=== PATIENT | female | born 1950 | race African-American/Black ===

== ENCOUNTER → 2018-06-22 | Outpatient (CLI) | payer MEDICARE ==
[~2018-06-22] MED LIST: DOXY100T2 PO; GLYB5TAB8 PO; HYDR-4173 PO; LISI20TA PO; METF-446 PO; PRAV20TA4 PO; PROM25TA7 PO; TRAM50TA4 PO; VICOT; [UNRECOGNIZED DRUG - CODE] PO
== END | disposition home or self-care (01) ==
LOC: RADMN 09:16
PROVIDERS: ATTEND Legal Medicine
DX: H05.89 Other disorders of orbit (principal); R51 Headache
CPT/HCPCS: 70450; 70486